=== PATIENT | female | born 1990 | race Hispanic/Latino ===

== ENCOUNTER 2016-09-09 01:48 | Emergency (ER) | payer OTHER ==
[~2016-09-09] VITALS: Ht 165.1 cm; Wt 61.4 kg
[~2016-09-09 01:48] MED LIST: ANTIVERT12.5 MG PO; PROCARDIA10 MG PO; VALIUM5 MG PO
[2016-09-09 02:13] LABS: HEMATOCRIT 38.8 % (36.0-46.0); MCH 28.3 PG (29.0-34.0); MCHC 33.5 G/DL (30.0-36.0); MCV 84.5 FL (83-99); MEAN PLAT.VOLUME 11.2 uM^3 (9.5-12.4); PLATELET COUNT 208 K/uL (156-360); RBC DIS.WIDTH-CV 13.3 % (11.8-14.6); RBC DIS.WIDTH-SD 41.3 % (39-53); RED BLOOD COUNT 4.59 M/uL (3.80-5.20)
[2016-09-09 02:25] LABS: CHLORIDE 106 mEq/L (99-109); POTASSIUM 3.7 mEq/L (3.7-5.4); SODIUM 137 mEq/L (136-147)
[2016-09-09 02:27] LABS: GLUCOSE 100 mg/dL (70-99)
[2016-09-09 02:28] LABS: ANION GAP 9 MEQ/L (2-14)
[2016-09-09 02:30] LABS: GFR ESTIMATE (CALCULATED) > 59 mL/min/
[2016-09-09 02:31] LABS: UREA NITROGEN (BUN) 10 mg/dL (9-23)
[2016-09-09 02:34] LABS: TROP-I INTERPRETATION NEGATIVE; TROPONIN-I < 0.01 ng/mL (0.0-0.30)
[2016-09-09 03:20] LABS: QUANTITATIVE HCG < 4.0 MIU/ML
[2016-09-09 05:08] LABS: SERUM ETHYL ALCOHOL < 10 mg/dL
[2016-09-09 06:20] LABS: HDL CHOLESTEROL 73 MG/DL (Desirable>=50); LDL CHOLESTEROL 86 mg/dL (Desirable<100); NON-HDL CHOLESTEROL 103 mg/dL (Desirable<160); TOTAL CHOLESTEROL 176 mg/dL (Desirable<200); TRIGLYCERIDES 87 MG/DL (Normal: <150)
[2016-09-09 06:49] LABS: ADD MIUA? NO; BILIRUBIN NEGATIVE; BLOOD NEGATIVE; COLOR COLORLESS ((YELLOW)); GLUCOSE (STRIP) NEGATIVE; KETONES NEGATIVE; LEUKOCYTES NEGATIVE; NITRITE NEGATIVE; PROTEIN (STRIP) NEGATIVE; SPECIFIC GRAVITY 1.004 (1.000-1.030); UCUL ADDED? NO; UROBILINOGEN 0.2 MG/DL (0.2-1.0)
[2016-09-09 07:00] VITALS: BP 122/92
[2016-09-09 08:05] LABS: AMPHETAMINES QUANT VALUE 0 NG/ML; BARBITUATES QUANT VALUE 0 NG/ML; BENZODIAZEPINES QUANT VALUE 0 NG/ML; BENZODIAZEPINES, URINE SCREEN Negative (200 ng/mL); MARIJUANA QUANT VALUE 0 NG/ML; OPIATES QUANTITATIVE VALUE 0 NG/ML; PHENCYCLIDINE QUANT VALUE 0 NG/ML
[2016-09-10 08:13] LABS: Estimated Average Glucose 111 mg/dL (70-123); HEMOGLOBIN A1c (GLYCOHEMOGLOB) 5.5 % HGB (Below 5.7)
== END 2016-09-09 07:53 | disposition short-term general hospital (02) ==
LOC: EME 01:48 → EDOF 04:35 → EME 04:35 → EDOF 04:35 → EME 07:53
PROVIDERS: Physician Assistant Medical
DX: R07.9 Chest pain, unspecified (principal); R20.2 Paresthesia of skin; M79.602 Pain in left arm; I10 Essential (primary) hypertension
CPT/HCPCS: 70450; 71020; 80048; 80061; 80306 90; 81003; 83036; 84484; 84702; 85027; 93005; 99281; 99285; G0480